=== PATIENT | male | born 1950 | race Caucasian/White ===

== ENCOUNTER 2017-06-21 05:34 | Outpatient (CLI) | payer MEDICARE ==
[~2017-06-21] VITALS: Ht 170.2 cm; Wt 83.9 kg
[2017-06-21] MEDS ORDERED: MODA200T39 PO (13:00)
== END 2017-06-21 13:08 ==
LOC: PREOP 05:34
PROVIDERS: ATTEND Specialist
DX: Z01.818 Encounter for other preprocedural examination (principal); H25.12 Age-related nuclear cataract, left eye

== ENCOUNTER 2017-06-25 05:53 | Day surgery (SDC) | payer BC, MEDICARE ==
[~2017-06-25] VITALS: Ht 170.2 cm; Wt 83.9 kg
[~2017-06-25 05:53] MED LIST: MODA200T39 PO
[2017-06-25 06:15] VITALS: BP 124/80
[2017-06-25] MEDS ORDERED: POVIDONE (BETADINE) OPHTH SOLN 5% 30 ML OP ONE (06:15)
[2017-06-25] MEDS ORDERED: TIMOLOL MALEATE 0.5% 5 ML (TIMOPTIC) BTL OU PRN (06:15)
[2017-06-25] MEDS ORDERED: LIDOCAINE PF 1% 2 ML AMP IR PRN (06:15)
[2017-06-25] MEDS ORDERED: VANCOMYCIN/BSS (COMPOUNDED) 10 MG/ML SYR OP ONE (06:15)
[2017-06-25] MEDS ORDERED: EPINEPHrine INJECTION 1 MG/ML AMP INJ ONE (06:15)
[2017-06-25] MEDS: TETRACAINE 0.5% OPHTH SOLN 4 ML BTL (SINGLE DOSE ONLY) OU PRN ×4 (06:18→06:47)
[2017-06-25] MEDS: PHENYLEPHRINE 10% OPHTH (NEO-SYN) 5 ML BTL OU SCH ×3 (06:33→06:47)
[2017-06-25] MEDS: CYCLOPENTOLATE 1% (CYCLOGYL) 2 ML DROPS OP SCH ×3 (06:33→06:47)
[2017-06-25] MEDS ORDERED: MIDAZOLAM 2 MG/2 ML (VERSED) VIAL ONE (06:51)
--- NOTE | 2017-06-25 07:33 | Ophthalmology Operative Report ---
Cataract removal/placement IOL PREOPERATIVE DIAGNOSIS: Cataract Left Eye POSTOPERATIVE DIAGNOSIS: Cataract Left Eye PROCEDURE: Cataract removal and placement of posterior chamber implant, left eye SURGEON: De Aguayo ANESTHESIA: Topical with sedation COMPLICATIONS: None ESTIMATED BLOOD LOSS: Minimal DESCRIPTION OF PROCEDURE: After proper informed consent was obtained, the patient, a 67 male, was taken to the Operating Room and the left eye was anesthetized with tetracaine. They left eye was then prepped and draped in the usual manner. A wire lid speculum was placed. A paracentesis was made at the left hand position. Preservative free lidocaine was injected into the anterior chamber followed by viscoelastic. A clear corneal incision was made in the temporal position. A capsulorrhexis was preformed and the central nuclear and cortical material were removed. The posterior capsule was polished and an Quinton [id number] 22.5 IOL was placed into the capsular bag. The residual viscoelastic was aspirated and balanced saline solution was injected into the anterior chamber. 1.0 ml of Vancomycin (10mg/ 1.0ml) was injected into the anterior chamber. The would was checked and found to be water tight. The patient tolerated the procedure well without complications. DE AGUAYO MD Jun 25, 2017 07:32
--- NOTE | 2017-06-25 07:37 | Anesthesia-General Post-Op ---
MAC Patient Condition Mental Status/LOC: Same as Preop Cardiovascular: Satisfactory Nausea/Vomiting: Absent Respiratory: Satisfactory Pain: Controlled Complications: Absent Post Op Complications Complications None Follow Up Care/Instructions Patient Instructions None needed. Anesthesiology Discharge Order Discharge Order Patient is doing well, no complaints, stable vital signs, no apparent adverse anesthesia problems. No complications reported per nursing. JUANA ZULETA CRNA Jun 25, 2017 07:37
[2017-06-25 07:39] VITALS: BP 138/90
== END 2017-06-25 07:39 | disposition home or self-care (01) ==
LOC: SDC 05:53
PROVIDERS: ATTEND Specialist
DX: H26.9 Unspecified cataract (principal)

== ENCOUNTER 2017-09-10 09:56 | Day surgery (SDC) | payer BC, MEDICARE ==
[~2017-09-10] VITALS: Ht 170.2 cm; Wt 83.9 kg
[2017-09-10 10:11] VITALS: BP 137/82
[2017-09-10] MEDS ORDERED: TIMOLOL MALEATE 0.5% 5 ML (TIMOPTIC) BTL OU PRN (10:15)
[2017-09-10] MEDS: TETRACAINE 0.5% OPHTH SOLN 4 ML BTL (SINGLE DOSE ONLY) OU PRN ×4 (10:15→10:44)
[2017-09-10] MEDS ORDERED: EPINEPHrine INJECTION 1 MG/ML AMP INJ ONE (10:15)
[2017-09-10] MEDS ORDERED: LIDOCAINE PF 1% 2 ML AMP IR PRN (10:15)
[2017-09-10] MEDS ORDERED: VANCOMYCIN/BSS (COMPOUNDED) 10 MG/ML SYR OP ONE (10:15)
[2017-09-10] MEDS ORDERED: POVIDONE (BETADINE) OPHTH SOLN 5% 30 ML OP ONE (10:15)
[2017-09-10] MEDS: CYCLOPENTOLATE 1% (CYCLOGYL) 2 ML DROPS OP SCH ×3 (10:24→10:44)
[2017-09-10] MEDS: PHENYLEPHRINE 10% OPHTH (NEO-SYN) 5 ML BTL OU SCH ×3 (10:25→10:44)
[2017-09-10] MEDS ORDERED: MIDAZOLAM 2 MG/2 ML (VERSED) VIAL ONE (10:44)
--- NOTE | 2017-09-10 10:45 | Ophthalmologist Pre-Op Note ---
Pre-Operative Progress Note H&P Reviewed The H&P was reviewed, patient examined and no changes noted. Date H&P Reviewed: September 10, 2017 Time H&P Reviewed: 10:45 Pre-Op Dx Cataract, Right Eye KIKO AGUAYO MD September 10, 2017 10:45
--- NOTE | 2017-09-10 11:09 | Ophthalmology Operative Report ---
Cataract removal/placement IOL PREOPERATIVE DIAGNOSIS: Cataract Right Eye POSTOPERATIVE DIAGNOSIS: Cataract Right Eye PROCEDURE: Cataract removal and placement of posterior chamber implant, right eye SURGEON: De Aguayo ANESTHESIA: Topical with sedation COMPLICATIONS: None ESTIMATED BLOOD LOSS: Minimal DESCRIPTION OF PROCEDURE: After proper informed consent was obtained, the patient, a 67 male, was taken to the Operating Room and the right eye was anesthetized with tetracaine. They right eye was then prepped and draped in the usual manner. A wire lid speculum was placed. A paracentesis was made at the left hand position. Preservative free lidocaine was injected into the anterior chamber followed by viscoelastic. A clear corneal incision was made in the temporal position. A capsulorrhexis was preformed and the central nuclear and cortical material were removed. The posterior capsule was polished and Quinton 22.0 SN6CWS IOL was placed into the capsular bag. The residual viscoelastic was aspirated and balanced saline solution was injected into the anterior chamber. 0.1ml of Vancomycin (10mg/0.1ml ) was injected into the anterior chamber. The wound was checked and found to be water tight. The patient tolerated the procedure well without complications. DE AGUAYO MD September 10, 2017 11:09
[2017-09-10 11:16] VITALS: BP 147/90
--- NOTE | 2017-09-10 13:09 | Anesthesia-General Post-Op ---
MAC Patient Condition Mental Status/LOC: Same as Preop Cardiovascular: Satisfactory Nausea/Vomiting: Absent Respiratory: Satisfactory Pain: Controlled Complications: Absent Post Op Complications Complications None Follow Up Care/Instructions Patient Instructions None needed. Anesthesiology Discharge Order Discharge Order Patient is doing well, no complaints, stable vital signs, no apparent adverse anesthesia problems. No complications reported per nursing. GIACOMO MANCIA CRNA September 10, 2017 13:09
== END 2017-09-10 11:17 | disposition home or self-care (01) ==
LOC: SDC 09:56
PROVIDERS: ATTEND Specialist
DX: H26.9 Unspecified cataract (principal)

== ENCOUNTER → 2021-04-02 | Outpatient (REF) ==
--- NOTE | 2021-04-02 16:12 | Diagnostic Imaging Report ---
INDICATION: Neck injury with pain. TECHNIQUE: AP, lateral, and odontoid views of the cervical spine were obtained. FINDINGS: There is slight anterolisthesis of C4 on C5. C5-C6 and C6-C7 disc space narrowing is associated with endplate spurring. The odontoid is suboptimally visualized on the lateral view but appears to be intact on the frontal image. IMPRESSION: Lumbar degenerative findings without definite acute abnormality identified. If symptoms persist, consideration could be given to CT imaging for further assessment. Dictated by: Dictated on workstation # [id number]
== END ==
LOC: OCC 15:28
PROVIDERS: ATTEND Nurse Practitioner Family
DX: M54.2 Cervicalgia (principal)
CPT/HCPCS: 72040

== ENCOUNTER → 2021-04-03 | Outpatient (REF) ==
--- NOTE | 2021-04-03 09:28 | Diagnostic Imaging Report ---
PROCEDURE: CT cervical spine without contrast. TECHNIQUE: Multiple contiguous axial images were obtained through the cervical spine without the use of intravenous contrast. Sagittal and coronal reformations were then performed. Auto Exposure Controls were utilized during the CT exam to meet ALARA standards for radiation dose reduction. DATE: April 03, 2021. INDICATION: 71-year-old male, neck pain and radiculopathy. COMPARISON: Cervical spine radiographs April 02, 2021. FINDINGS: There is no identified facet joint subluxation or dislocation. There are advanced facet degenerative changes on the right at C3-C4 and mild to moderate facet degenerative changes on the left at C3-C4. There are moderate to severe left facet degenerative changes at C4-C5. There is grade 1 anterolisthesis of C4 on C5, likely relating to the facet arthropathy measuring 2.5 mm. There is arthritis at the C1-C2 articulation. There is chondrocalcinosis. There is mild disc height loss at C2-C3. There is severe disc height loss at C5-C6 and C6-C7. There are posterior disc osteophyte complexes at both levels. CT is limited for assessment of disc pathology as well as evaluation of additional non-bony causes of pathology in the spinal canal. There do appear to be posterior disc osteophyte complexes present at C2-C3 and C3-C4, as well. There is no identified acute fracture of the cervical spine. The visualized portions of the lung apices are clear. 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 IMPRESSION: 1. Multilevel disc and facet degenerative changes of the cervical spine, as described above. CT is limited for assessment of disc pathology and assessing degrees of bony and foraminal stenosis. This would be more optimally evaluated on MRI if needed. 2. No identified acute fracture or other acute osseous abnormality. 3. 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 Dictated by: Dictated on workstation # [id number]
== END ==
LOC: OCC 07:29
PROVIDERS: ATTEND Nurse Practitioner Family
DX: M54.2 Cervicalgia (principal)
CPT/HCPCS: 72125

== ENCOUNTER → 2022-12-30 | Outpatient (CLI) | payer BC, MEDICARE ==
[~2022-12-30] VITALS: Ht 170 cm; Wt 76.0 kg
[~2022-12-30] MED LIST changes: +CATHETER FLUSH 10 ML SYR IVP PRN
[2022-12-30 09:08] VITALS: BP 115/62
--- NOTE | 2022-12-30 11:03 | Cardiology Stress Test Report ---
Stress Test Report Date of Procedure/Referring: Date of Procedure: Dec 30, 2022 PCP Bernie Ocampo MD Admitting Physician Admitting Physician: Attending Physician: Heath Elaine MD Baseline Heart Rate: 52 Baseline Blood Pressure: Blood Pressure Systolic: 115 Blood Pressure Diastolic: 62 Vital Signs Date Time Temp Pulse Resp B/P (MAP) Pulse Ox O2 Delivery O2 Flow Rate FiO2 12/30/22 09:08 52 115/62 (79) Baseline Vital Signs Vital Signs Date Time Temp Pulse Resp B/P (MAP) Pulse Ox O2 Delivery O2 Flow Rate FiO2 12/30/22 09:08 52 115/62 (79) Baseline EKG: Baseline EKG: NSR Summary: After explaining the procedure and details to the patient, he signed the consent and was brought to the stress nuclear laboratory. Patient exercised on standard Jaime protocol, EKG, heart rate and blood pressure were monitored continuously, resting and stress doses of radio tracer were injected, imaging was acquired and reviewed in the short axis, horizontal long axis and vertical long axis views Patient was able to exercise for a total of 10 minutes on Jaime protocol, METs 10.3 Maximum heart rate 128 Maximum blood pressure 178/71 Stress EKG, Minimal nondiagnostic changes Recovery EKG, Return to baseline TID: 1.02 SSS: 2 SDS: 2 EF: 63 Conclusion: Excellent exercise tolerance for a total of 10 minutes on standard Jaime protocol, 10.3 METS achieving 85% of maximal expected heart rate Appropriate heart rate and blood pressure response to exercise return to baseline during recovery Nondiagnostic EKG changes with exercise return to baseline during recovery No ischemia or infarction noted on SPECT images Normal left ventricular size, ejection fraction 63% Copy Copies To 1: BERNIE OCAMPO MD, BASHAR J MD Dec 30, 2022 11:03
== END ==
LOC: CARD 07:39
PROVIDERS: ATTEND Internal Medicine Cardiovascular Disease
DX: R06.09 Other forms of dyspnea (principal)
CPT/HCPCS: 78452; 93017; A9502